=== PATIENT | male | born 1980 | race Caucasian/White ===

== ENCOUNTER 2019-12-01 08:25 | Outpatient (REF) | payer OTHER, SELFPAY ==
[2019-12-01 11:38] LABS: Alanine Aminotransferase 34 U/L (0-40); Albumin Level 4.4 g/dL (3.5-5.0); Alkaline Phosphatase 62 U/L (39-117); Anion Gap 13 (12-20); Aspartate Amino Transferase 17 U/L (5-37); Bilirubin Total 0.5 mg/dL (0.0-1.0); Blood Urea Nitrogen 20 mg/dL (9-16); Calcium 9.3 mg/dL (8.4-10.2); Carbon Dioxide 28 mmol/L (22-29); Chloride 102 mmol/L (96-108); Cholesterol 193 mg/dL; Estimated Glomerular Filt Rate > 60; Glucose Fasting 91 mg/dL (60-99); HDL Cholesterol 34 mg/dL; LDL Cholesterol Calculated 126 mg/dl; Sodium 139 mmol/L (135-145); Total Protein 6.9 g/dL (6.5-8.0); Triglycerides 168 mg/dL
[2019-12-01 12:00] LABS: Vitamin D 25-OH Total 14.3 ng/mL (>30)
== END 2019-12-01 08:26 | disposition home or self-care (01) ==
LOC: HO.HMGCLDS 08:25
PROVIDERS: PCP Nurse Practitioner Family; Visit Provider Nurse Practitioner Family
DX: Z13.29 Encounter for screening for other suspected endocrine disorder (principal); Z13.21 Encounter for screening for nutritional disorder; Z13.220 Encounter for screening for lipoid disorders
CPT/HCPCS: 80053; 80061; 82306; 84443

== ENCOUNTER 2023-09-25 08:09 | Outpatient (AMB) | payer OTHER, SELFPAY ==
--- NOTE | 2023-09-25 08:13 | MHC.OFFWIV ---
Intake Vital Signs 09/25/23 08:15 Height 5 ft 9 in Weight 305 lb BMI 45.0 BP 140/100 H Blood Pressure Location Rt brachial Position Sitting Pulse 91 Pulse Source Pulse Oximeter Pulse Oximetry (%) 96 Oxygen Delivery Method Room Air Intake Visit Reasons: EP ?Bladder infection Intake Note: Patient here for possible bladder infection which has been going on for a few months on and off. Patient Tobacco Use Status: Never used Tobacco Allergies No Known Allergies [No Known Allergies*] Allergy (Unverified 09/25/23 08:21) Do you need a note to return to daycare/school/sports/work: No HPI EP ?Bladder infection HPI Details This is a 43 year old male patient who presents today with possible UTI symptoms over the last couple of months. He reports bladder spasms and a strong odor to his urine. He states this has been on and off over the last 2 months. He finds it has gone away with increased hydration/cranberry juice. He denies any fever/chills. Denies any dysuria or frequency. Denies any STI risk or new partners. [facility] Social History Patient Tobacco Use Status: Never used Tobacco Review of Systems Const All systems reviewed & are unremarkable except as noted in HPI and below Physical Exam Vital Signs: Last Vital Signs Pulse 91 09/25/23 08:15 BP 140/100 H 09/25/23 08:15 Pulse Ox 96 09/25/23 08:15 Oxygen Delivery Method Room Air 09/25/23 08:15 BMI result Body Mass Index 45.0 Const General: cooperative, healthy appearing and no acute distress Nutritional Appearance: obese Resp Effort & Inspection: normal respiratory effort General: Yes bladder normal to palpation and Yes no CVA tenderness Back/Spine/Pelvis Back: no CVA tenderness Skin General skin exam: no rashes or lesions noted Extrem General: Yes no clubbing, cyanosis or edema Psych Appearance: grossly normal Mental Status: mental status grossly normal Speech and movement: Normal speech and movement present Results AMB Urinalysis, Automated UA Leukoctes 0 Patricia/uL Last Edit by JESSICA Kim on 09/25/23 08:26 UA Nitrite Negative Last Edit by JESSICA Kim on 09/25/23 08:26 UA Urobilinogen 0.2 mg/dL Last Edit by JESSICA Kim on 09/25/23 08:26 UA Protein 0 mg/dL Last Edit by Kem Beckett [facility] on 09/25/23 08:26 UA pH 6.0 Last Edit by Kem Beckett [facility] on 09/25/23 08:26 UA Blood 0 Fantasma/uL Last Edit by Kem Beckett [facility] on 09/25/23 08:26 UA Specific [place] 1.010 Last Edit by Kem Beckett [facility] on 09/25/23 08:26 UA Ketone Negative Last Edit by Kem Beckett [facility] on 09/25/23 08:26 UA Bilirubin 0 mg/dL Last Edit by Kem Beckett [facility] on 09/25/23 08:26 UA Glucose 0 mg/dL Last Edit by Kem Beckett [facility] on 09/25/23 08:26 Results Reviewed Results Reviewed: Laboratory Last Values Urine pH (Auto) 6.0 09/25/23 08:25 Specific [place] (Auto) 1.010 09/25/23 08:25 Urine Protein (Auto) 0 mg/dL 09/25/23 08:25 Glucose (UA)(Auto) 0 mg/dL 09/25/23 08:25 Urine Ketones (Auto) Negative 09/25/23 08:25 Urine Blood (Auto) 0 Fantasma/uL 09/25/23 08:25 Urine Nitrite (Auto) Negative 09/25/23 08:25 Urine Bilirubin (Auto) 0 mg/dL 09/25/23 08:25 Urine Urobilinogen (Auto) 0.2 mg/dL 09/25/23 08:25 Leukocyte Esterase (Auto) 0 Patricia/uL 09/25/23 08:25 Assessment & Plan Assessment & Plan (1) Cystitis: Code(s): N30.90 - Cystitis, unspecified without hematuria Plan: Encouraged patient to increase fluid intake and also try the prescribed pyridium. If this does not improve symptoms, I have sent rx for Macrobid. We reviewed indications, use, possible s/e of medications. If he does not improve, or if symptoms worsen/new symptoms develop, he should return to clinic for further evaluation. He verbalizes understanding and agrees to plan. Orders: Orders AMB Urinalysis Automated Today Vida Syed PA-C Z13.9 - Encounter for screening, unspecified Medications: New nitrofurantoin monohyd/m-cryst 100 mg (Macrobid) must administer with a meal/food 100 mg PO Q12H 7 days 14 caps 0RF FELIZ Day N30.90 - Cystitis, unspecified without hematuria phenazopyridine 200 mg PO TID 6 tabs 0RF pain FELIZ Day N30.90 - Cystitis, unspecified without hematuria Discontinued lisinopril Discontinued Reason: Patient no longer taking 40 mg PO DAILY 90 days 90 tabs 0RF labetalol Discontinued Reason: Patient no longer taking 300 mg PO BID 90 days 180 tabs 0RF Coding Level of Care Code Est Pt Level 4 (63320) Diagnoses Cystitis N30.90
[2023-09-25 08:15] VITALS: BP 140/100; PULSE 91; O2SAT 96; BMI 45.0
== END 2023-09-25 08:41 | disposition home or self-care (01) ==
PROVIDERS: PCP Nurse Practitioner Family; Visit Provider Nurse Practitioner Family
DX: Z13.9 Encounter for screening, unspecified (principal); N30.90 Cystitis, unspecified without hematuria
CPT/HCPCS: 81003; 99214

== ENCOUNTER 2023-10-12 11:22 | Outpatient (AMB) | payer OTHER, SELFPAY ==
--- NOTE | 2023-10-12 11:25 | MHC.OFFWIV ---
Intake Vital Signs 10/12/23 11:26 Height 5 ft 9 in Weight 400 lb BMI 59.1 BP 150/100 H Blood Pressure Location Lt brachial Position Sitting Pulse 84 Pulse Source Pulse Oximeter Pulse Oximetry (%) 98 Oxygen Delivery Method Room Air Intake Visit Reasons: EP- Abdomen pain, hurts when breathing Intake Note: Patient here for abdominal pain and hurts breathing, present since last night. Patient Tobacco Use Status: Never used Tobacco Allergies No Known Allergies [No Known Allergies*] Allergy (Unverified 10/12/23 11:27) Do you need a note to return to daycare/school/sports/work: No HPI HPI Comments History of Present Illness Details Patient is a 43-year-old male complaining of abdominal pain since last night. He states it is much worse when he lays flat on his back. He denies any nausea vomiting fevers or diarrhea. He states he had a normal bowel movement last evening. States he was able to eat breakfast this morning and the pain was not worse after he ate food. He states he tried taking Pepto-Bismol a few hours ago and that did not seem to help the pain. He describes the pain as a dull aching pain that does not radiate. He states he does still have his gallbladder. He denies any excessive alcohol use. [facility] Social History Patient Tobacco Use Status: Never used Tobacco Review of Systems Const All systems reviewed & are unremarkable except as noted in HPI and below Physical Exam Vital Signs: Last Vital Signs Pulse 84 10/12/23 11:26 BP 150/100 H 10/12/23 11:26 Pulse Ox 98 10/12/23 11:26 Oxygen Delivery Method Room Air 10/12/23 11:26 BMI result Body Mass Index 59.1 Const General: cooperative, healthy appearing, comfortable, no acute distress and well developed Orientation/consciousness: patient oriented x3 Limitations: no limitations HEENT Head: Yes normal to inspection Ears: hearing grossly normal bilaterally General nose exam: Normal external nose present Face and sinus: Yes normal facial exam Eyes General: appearance normal, both eyes and all related structures Neck Neck: Yes normal visual inspection and Yes full ROM Resp Effort & Inspection: normal respiratory effort and able to speak in complete sentences GI Inspection: Yes normal to inspection Palpation (GI): Soft to palpation and Tenderness to palpation present (GI) in the epigastrum Skin General skin exam: no rashes or lesions noted Neuro General: patient oriented x3 Extrem General: Yes normal to inspection Assessment & Plan Assessment & Plan (1) Epigastric pain: Code(s): R10.13 - Epigastric pain Plan: Vital signs are stable, patient struggled to lay flat on the exam table secondary to pain. Difficult to determine etiology of pain but as it's so extreme, needs further workup. Sent patient to the emergency department, he is opting to go to [facility] ED. Plan see above Coding Level of Care Code Est Pt Level 4 (59786) Diagnoses Epigastric pain R10.13
[2023-10-12 11:26] VITALS: BP 150/100; PULSE 84; O2SAT 98; BMI 59.1
== END 2023-10-12 12:13 | disposition home or self-care (01) ==
PROVIDERS: PCP Nurse Practitioner Family; Visit Provider Physician Assistant
DX: R10.13 Epigastric pain (principal)
CPT/HCPCS: 99214